=== PATIENT | female | born 1990 | race Caucasian/White ===

== ENCOUNTER → 2018-06-13 | Outpatient (CLI) | payer MEDICARE, MEDICAID ==
[~2018-06-13] MED LIST: ACYCLOVIR 200200 MG PO; CLONAZEPAM 1 MG1 M1 PO; COLACE100 MG PO; ERYTHROMYCIN250 MG PO; HYDROCODON-ACE1 EAC8 PO; HYDROXYZINE HCL50 MG PO; MAGNESIUM400 MG PO; MUCINEX600 MG PO; PATADAY2.5 ML OPHTHALMIC; PEPCID40 MG PO; PHENERGAN 25 MG25 M1 PO; SEROQUEL400 MG PO; SUDAFED30 MG PO
== END ==
LOC: M.NUC 07:09
DX: R11.0 Nausea (principal); R10.9 Unspecified abdominal pain

== ENCOUNTER → 2021-07-08 | Outpatient (CLI) | payer MEDICARE, MEDICAID | LOC: M.LAB 06:39 | PROVIDERS: ATTEND Internal Medicine Gastroenterology | DX: Z01.812 Encounter for preprocedural laboratory examination (principal); Z20.822 Contact with and (suspected) exposure to COVID-19 ==

== ENCOUNTER → 2021-07-19 | Outpatient (CLI) | payer MEDICARE, MEDICAID | LOC: M.NUC 07:16 | PROVIDERS: ATTEND Internal Medicine Gastroenterology | DX: K31.84 Gastroparesis (principal); R11.0 Nausea ==